=== PATIENT | female | born 1970 | race Caucasian/White ===

== ENCOUNTER 2020-02-20 09:46 | Emergency (ER) | payer BC ==
[~2020-02-20] VITALS: Ht 170.2 cm; Wt 90.7 kg
[2020-02-20] MEDS ORDERED: Acular LS 0.4% 55 ML BOTHEYES (10:41)
[2020-02-20] MEDS ORDERED: ERYT.5TO BOTHEYES (10:41)
== END 2020-02-20 10:48 | disposition home or self-care (01) ==
LOC: ER 09:46
DX: H16.133 Photokeratitis, bilateral (principal)
CPT/HCPCS: 99283